=== PATIENT | male | born 1980 | race Caucasian/White ===

== ENCOUNTER 2017-06-14 21:16 | Emergency (ER) | payer BC, OTHER ==
[2017-06-14 21:21] VITALS: BP 130/80; PULSE 69; TEMP 98.7; BMI 26.6
[2017-06-14] MEDS ORDERED: IBUPROFEN 600 MG TABLET (FP) PO ONE ×2 (21:32→21:33)
--- NOTE | 2017-06-14 21:32 | PDOC ---
History of Present Illness - General History Source: Patient Exam Limitations: No Limitations - History of Present Illness Initial Comments: A portion of this note was documented by scribe services under my direction. I have reviewed the details of the note, within reason, and agree with the documentation. The case summary and management plan written by me. 06/14/17 21:42 Assessment and plan: This is a 36-year-old male who was lifting a heavy item while moving when he felt a sudden pop in his left forearm and had immediate discomfort in the area of the flexor pollicis longus muscle. Patient noted a bulging of that muscle with decreased strength in his arm. On exam there appears to be a probable tear of the muscle with bunching of the muscle as a result. Neurovascular was intact. Patient forearm was Jadon wrap and he was given a sling to help rest the arm and the decrease use of the muscle. Patient was given an orthopedic follow-up and told to call them in the morning and get an appointment as soon as possible Patient was given ibuprofen for pain and told that he can continue it. <Julito Calzada I - Last Filed: 06/14/17 21:42> - General History Source: Patient Exam Limitations: No Limitations - History of Present Illness Initial Comments: 06/14/17 21:46 The patient is a 36 year old male, with no significant past medical history, who presents to the emergency department via walk in with, left wrist and elbow pain beginning just prior to arrival. The patient reports he was moving a television at home when he felt a sudden pop in his left wrist. The patient reports the left arm pain is made worse with movement. He denies any recent fevers, chills, headache or dizziness. He denies any recent nausea, vomit, diarrhea or constipation. He denies any recent chest pain or shortness of breath. General: No fevers or chills, no weakness, no weight loss HEENT: No change in vision. No sore throat,. No ear pain CardioVascular: No chest pain or shortness of breath Respiratory:No cough, or wheezing. Gastrointestinal: no nausea, vomiting, diarrhea or constipation, No rectal bleeding Genitourinary: No dysuria, hematuria, or frequency Musculoskeletal: +Left elbow pain. +Left wrist pain. Neurologic: No headache, vertigo, dizziness or loss of consciousness Psychiatric: nor depression Skin: No rashes or easy bruising Endocrine: no increased thirst or abnormal weight change Allergic: no skin or latex allergy All other systems reviewed and normal GENERAL: The patient is awake, alert, and fully oriented. HEAD: Normal with no signs of trauma. EYES: Pupils equal, round and reactive to light, extraocular movements intact, sclera anicteric, conjunctiva clear. EXTREMITIES: +Tenderness and bunching of the flexor pollicis longus muscle. + Decreased ability to flex the arm secondary to pain. No bony tenderness of the forearm or elbow. Neurovascular intact. NEUROLOGICAL: Normal speech, normal gait. PSYCH: Normal mood, normal affect. SKIN: Warm, Dry, normal turgor, no rashes or lesions noted. <John Payan - Last Filed: 06/14/17 21:47> - General Chief Complaint: Pain Stated Complaint: L ELBOW PAIN Time Seen by Provider: 06/14/17 21:24 Past History - Past Medical History COPD: No - Suicide/Smoking/Psychosocial Hx Smoking History: Never smoked Have you smoked in the past 12 months: No Number of Cigarettes Smoked Daily: 0 Information on smoking cessation initiated: No Hx Alcohol Use: No Drug/Substance Use Hx: No Substance Use Type: None <Julito Calzada I - Last Filed: 06/14/17 21:42> <John Payan - Last Filed: 06/14/17 21:47> - Past Medical History Allergies/Adverse Reactions: Allergies Allergy/AdvReac Type Severity Reaction Status Date / Time No Known Allergies Allergy Unverified 06/14/17 21:20 Home Medications: Ambulatory Orders NK [No Known Home Medication] 06/14/17 *Physical Exam - Vital Signs Last Vital Signs Temp Pulse Resp BP Pulse Ox 98.7 F 69 14 130/80 100 06/14/17 21:18 06/14/17 21:18 06/14/17 21:18 06/14/17 21:18 06/14/17 21:18 <Julito Calzada I - Last Filed: 06/14/17 21:42> - Vital Signs Last Vital Signs Temp Pulse Resp BP Pulse Ox 98.7 F 69 14 130/80 100 06/14/17 21:18 06/14/17 21:18 06/14/17 21:18 06/14/17 21:18 06/14/17 21:18 <John Payan - Last Filed: 06/14/17 21:47> ED Treatment Course - Medications Given in the ED: ED Medications Discontinued Medications Generic Name Dose Route Start Last Admin Trade Name Herrera PRN Reason Stop Dose Admin Ibuprofen 600 mg 06/14/17 21:32 06/14/17 21:35 Motrin - PO 06/14/17 21:33 600 mg ONCE ONE Administration <John Payan - Last Filed: 06/14/17 21:47> *DC/Admit/Observation/Transfer - Discharge Dispostion Admit: No <Julito Calzada I - Last Filed: 06/14/17 21:42> - Attestations Scribe Attestion: 06/14/17 21:47 Documentation prepared by John Payan, acting as medical equipment repairer for Julito Calzada MD. <John Payan - Last Filed: 06/14/17 21:47> Diagnosis at time of Disposition: Injury of forearm muscle or tendon Qualifiers: Encounter type: initial encounter Laterality: left Qualified Code(s): S56.902A - Unspecified injury of unspecified muscles, fascia and tendons at forearm level , left arm, initial encounter - Discharge Dispostion Disposition: HOME Condition at time of disposition: Good - Patient Instructions Printed Discharge Instructions: How to Use a Sling Additional Instructions: Wear the Jadon wrap for comfort as needed Wear the sling during the day don't wear it in bed at night. Take ibuprofen 3 tablets 3 times a day with food don't take on an empty stomach for the pain. Follow-up with orthopedics if you need an orthopedist call Dr. Maxwell at for an appointment in the morning Return to the emergency department immediately with ANY new, persistent or worsening symptoms. Continue any medications as previously prescribed by your physician. You should follow up with your primary doctor as soon as possible regarding today's emergency department visit. . Please make sure your doctor reviews the results of your emergency evaluation. Thank you for coming to the Emergency Department today for your care. It was a pleasure to see you today. Please note that your evaluation is INCOMPLETE until you follow-up with your doctor.
== END 2017-06-14 21:36 | disposition home or self-care (01) ==
LOC: FER 21:16
DX: S56.902A Unspecified injury of unspecified muscles, fascia and tendons at forearm level, left arm, initial encounter (principal); X58.XXXA Exposure to other specified factors, initial encounter; Y93.89 Activity, other specified; Y92.9 Unspecified place or not applicable
CPT/HCPCS: 99282-25